=== PATIENT | male | born 2005 | race Two or more races ===

== ENCOUNTER 2024-06-23 16:54 | Emergency (ER) | payer MEDICAID, OTHER ==
[~2024-06-23] VITALS: Ht 170.2 cm; Wt 57.8 kg
--- NOTE | 2024-06-23 18:36 | ED.PDOC ---
HPI (NEURO) HPI Comments 19 year old male presents to ER with complaints of anxiety x 1 day. Patient with no PMH states he smoked "a few hits" of marijuana at 3:40 pm this afternoon and immediately afterwards started feeling "very sleepy" with mild pressure to substernal region of chest. Denies daily marijuana/drug use and notes that others around him were smoking the same marijuana without any similar symptoms. States the pressure to substernal region of chest has since fully subsided and denies any current pain. Denies use of medications. Patient presents to ER ambulatory on arrival, with steady gait, alert and oriented x4, in no distress with vitals stable. Denies shortness of breath, cough, palpitations, n/v, numbness/tingling, confusion, hallucinations, vision changes, dizziness, headache, abdominal pain or any further symptoms/complaints Chief Complaint: Anxiety Time Seen by MD: 18:07 Primary Care Provider: UNKNOWN Reviewed Notes: Nurses Notes, Medications, Allergies Information Source: Patient Mode of Arrival: Ambulatory Past Medical History PAST MEDICAL HISTORY: Denies Surgical History: Denies all surgeries Family History Family History: Unknown Social History Smoker: Non-Smoker Alcohol: Denies ETOH Use Drugs: Marijuana Lives In: Home Constitutional: denies: chills, diaphoresis, fatigue, fever, malaise, sweats, weakness, others EENTM: denies: blurred vision, double vision, ear bleeding, ear discharge, ear drainage, ear pain, ear ringing, eye pain, eye redness, hearing loss, mouth pain, mouth swelling, nasal discharge, nose bleeding, nose congestion, nose pain, photophobia, tearing, throat pain, throat swelling, voice changes, others Respiratory: denies: cough, hemoptysis, orthopnea, SOB at rest, shortness of breath, SOB with excertion, stridor, wheezing, others Cardiovascular: reports: others (As stated in HPI) Gastrointestinal: denies: abdomen distended, abdominal pain, blood streaked bowels, constipated, diarrhea, dysphagia, difficulty swallowing, hematemesis, melena, nausea, poor appetite, poor fluid intake, rectal bleeding, rectal pain, vomiting, others Genitourinary: denies: burning, dysuria, flank pain, frequency, hematuria, in continence, penile discharge, penile sore, pain, testicle pain, testicle swelling, urgency, others Neurological: denies: dizziness, fainting, headache, left sided numbness, left sided weakness, numbness, paresthesia, pre-existing deficit, right sided numbness, right sided weakness, seizure, speech problems, tingling, tremors, weakness, others Musculoskeletal: denies: back pain, gout, joint pain, joint swelling, muscle pain, muscle stiffness, neck pain, others Integumetry: denies: bruises, change in color, change in hair/nails, dryness, laceration, lesions, lumps, rash, wounds, others Allergic/Immunocompromised: denies: Difficulty Healing, Frequent Infections, Hives, Itching, others Hematologic/Lymphatic: denies: anemia, blood clots, easy bleeding, easy bruising, swollen glands, others Endocrine: denies: excessive hunger, excessive sweating, excessive thirst, excessive urination, flushing, intolerance to cold, intolerance to heat, unexplained weight gain, unexplained weight loss, others Psychiatric: reports: others (As stated in HPI) Physical Exam General Appearance: No Apparent Distress HEENT: Normal ENT Inspection, PERRL/EOMI, Pharynx Normal, TMs Normal Neck: Full Range of Motion, Non-Tender, Normal Respiratory: Chest Non-Tender, Lungs Clear, No Accessory Muscle Use, No Respiratory Distress, Normal Breath Sounds Cardiovascular: No Murmur, No Gallop, Regular Rate/Rhythm Breast Exam: Deferred Gastrointestinal: NOT DONE Genitalia: Deferred Pelvic: Deferred Rectal: Deferred Extremities: Normal capillary refill, Normal range of motion Neurologic: Alert, payment processor II-XII nml as Tested, No Motor Deficits, Normal Affect, Normal Mood, No Sensory Deficits Cerebellar Function: Normal Reflexes: Normal Skin: Dry, Normal Color, Warm Peripheral Pulses: 2+ Radial (R), 2+ Radial (L), 2+ Brachial (R), 2+ Brachial (L) Lymphatic: No Adenopathy EKG EKG : Pulse Rate (adult): 79 [place]: Normal Cardiac Rhythm: NSR (SR) Was a procedure done? Was a procedure done?: No Sedation Sedation?: No Differential Diagnosis (SZ) CVA: Electrolyte Imbalance, Encephalopathy Headache: Other (RI) X-Ray, Labs, Meds, VS Vital Signs Date Time Temp Pulse Resp B/P (MAP) Pulse Ox O2 Delivery O2 Flow Rate FiO2 06/23/24 17:29 97.7 98 18 130/82 (98) 100 EKG reviewed Patient reported improvement in symptoms and was asymptomatic prior to discharge Cannabis cessation discussed and advised Advised to drink plenty of fluids Advised to follow up with PCP in 1-2 days Patient alert and oriented x4 prior to discharge. Patient verbalized understanding and agreeable with current plan of care Advised to return to ER immediately if symptoms worsen Time of 1ST Reevaluation: 18:12 Reevaluation 1ST: N/A Patient Education/Counseling: Diagnosis, Treatment, Prognosis, Need For Follow Up Family Education/Counseling: Diagnosis, Treatment, Prognosis, Need For Follow Up Departure 1 Departure Time of Disposition: 18:32 Impression: Primary Impression: Anxiety Additional Impression: Cannabis abuse Disposition: 01 HOME / SELF CARE / HOMELESS Condition: Stable Discharged With: Friend Critical Care Note Critical Care Time?: No Stability Stability form required: No Heart Score Heart Score: Heart Score Response (Comments) Value History Slightly Suspicious 0 EKG Repolarization Disturb 1 Age <45 0 Risk Factors 1 or 2 risk factors 1 Troponin N/A 0 Total 2 JIMBO BENITO Jun 23, 2024 18:36
[2024-06-23 18:56] VITALS: BP 130/80; TEMP 97.8
[2024-06-23 18:58] VITALS: PULSE 90; RESP 18; O2SAT 98
--- NOTE | 2024-06-23 21:09 | ECG ---
[facility] Test Date: 2024-06-23 Test Time: 18:35:14 Pat Name: RADHA SÁNCHEZ Department: er Room: Gender: M Hr Payroll Coordinator: CAMRON : 2005 Requested By: JIMBO BENITO Order Number: [id number] Reading MD: Measurements Intervals [place] Rate: 79 P: 55 [place]: 148 QRS: 56 QRSD: 91 T: 10 QT: 346 QTc: 397 Interpretive Statements Sinus rhythm RSR' in V1 or V2, probably normal variant LVH by voltage ST elev, probable normal early repol pattern Please click the below link to view image of tracing.
== END 2024-06-23 19:16 | disposition home or self-care (01) ==
LOC: ER 16:54
DX: F41.9 Anxiety disorder, unspecified (principal); F12.10 Cannabis abuse, uncomplicated
CPT/HCPCS: 93005